=== PATIENT | female | born 1980 | race Caucasian/White ===

== ENCOUNTER → 2023-11-15 06:16 | Day surgery (SDC) | payer BC, SELFPAY | LOC: GI 06:16 | PROVIDERS: ATTENDING PHYSICIAN Internal Medicine Gastroenterology | DX: R10.32 Left lower quadrant pain (principal); K64.8 Other hemorrhoids | CPT/HCPCS: 45378 ==

== ENCOUNTER 2024-01-08 18:52 | Inpatient (IN) | payer BC, SELFPAY ==
[2024-01-08] VITALS (8 sets, daily range): BP systolic 97–129; BP diastolic 53–82; BMI 23.3
--- NOTE | 2024-01-08 11:59 | ED.GENMED ---
History of Present Illness
<Salina Bliss PA-C - Last Filed: 01/08/24 19:33>
General
Chief Complaint: Abdominal Symptoms
Source: patient
Exam Limitations: none
Time Seen by Provider: 01/08/24 11:48
Nursing documentation reviewed up to this point in time: agreed with
History of Present Illness
History of Present Illness:
43-year-old female with past medical history of prior appendectomy, , asthma, migraine disorder presenting emergency department today with concerns of nausea, abdominal pain. Patient states that for the past few weeks or so, she has felt
nauseous persistently and states that this is impacted her oral intake. Patient reports a 14 pound weight loss within the past month. Patient states that she then developed sudden onset severe diffuse abdominal pain that started last night and
progressed throughout the night. Patient subsequently had to large-volume bloody stools which were very painful for her. Patient also had multiple episodes of vomiting this past week and states that she is not able to keep anything down orally
without subsequently vomiting. Patient denies any dysuria, hematuria, urinary frequency. Patient denies any fevers or chills, recent sick contacts, recent travel. Patient states that she was having left lower quadrant pain flank pain persistently
a few months ago but states it is much different than this. Because of that pain, she had a colonoscopy around 2 months ago which demonstrated internal hemorrhoids but was otherwise unremarkable.
Past History
<Salina Bliss PA-C - Last Filed: 01/08/24 19:33>
Past History
ED Past Medical History: Asthma (Bronchitis), Hypercholesterolemia, Psychiatric (Anxiety), Other (Migraines) and Other (. 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
ED Past Surgical History: Appendectomy
Social History
Tobacco: Vaping
Alcohol: Occasional
Personal:
Living: with family
Family History
Family History: Negative Diabetes, Hypertension or CAD
Review of Systems
<Salina Bliss PA-C - Last Filed: 01/08/24 19:33>
Review of Systems
All Other Systems: ROS reviewed and negative except as documented in HPI and ROS
Phy Exam
<Salina Bliss PA-C - Last Filed: 01/08/24 19:33>
Physical Exam
Physical Exam:
General: Patient is well appearing and in no acute distress; non-toxic
Skin: Warm and dry, no rashes or lesions
Head: Normocephalic, atraumatic
Eyes: Sclera non-icteric. EOMs intact. PERRLA.
Cardiac: Regular rate and rhythm, no murmurs
Pulm: Normal respiratory effort
Abdomen: Diffuse abdominal tenderness to palpation with guarding, no palpable masses
Neuro: CN II-XII intact, no focal neurologic deficits.
Psychiatric: Appropriate mood and affect.
Course
<Salina Bliss PA-C - Last Filed: 01/08/24 19:33>
Orders/Labs/Results
Orders:
Orders
01/08/24 12:08
0.9% Sodium Chloride 1000 ml [Nss] 1,000 ml IV BOLUS
Ketorolac [Toradol] 15 mg IV NOW STA
Ondansetron Injectable [Zofran] 4 mg IV NOW STA
01/08/24 12:17
Complete Blood Count/With Diff Urgent
Comprehensive Metabolic Panel Urgent
HCG, Serum Qualitative Screen Urgent
Comment: ADD ON
Lipase Urgent
Comment: ADD ON
01/08/24 12:28
Iohexol [Omnipaque] See Protocol PO NOW STA
01/08/24 12:29
CT Abd/pel W Iv And Oral Contr Urgent
Comment:
Reason For Exam: diffuse abdominal pain
01/08/24 14:25
0.9% Sodium Chloride 1000 ml [Nss] 1,000 ml IV BOLUS
01/08/24 14:30
Add On- LAB Urgent
Tests Added?: serum hcg
01/08/24 14:41
Ondansetron Injectable [Zofran] 4 mg IV NOW STA
01/08/24 14:50
HYDROmorphone [Dilaudid] 0.5 mg IV NOW STA
01/08/24 15:00
HYDROmorphone [Dilaudid] 0.5 mg .ROUTE .STK-MED ONE
01/08/24 15:42
Test Result ONCE
01/08/24 15:49
Urine Drug Abuse Screen Urgent
Date Specimen was Collected: 01/08/24
Time Specimen was Collected: 15:49
01/08/24 17:50
Piperacillin/Tazo 3.375 Gram [Zosyn] 3.375 gram in 50 ml IV NOW
01/08/24 17:57
C DIFF [C difficile Antigen & Toxins] Routine
KATHY Source: Feces/Stool
Specimen Description:
Norovirus by PCR Routine
KATHY Source: Feces/Stool
Specimen Description:
Stool Culture Routine
KATHY Source: Feces/Stool
Specimen Description:
01/08/24 18:12
Admit/Transfer Patient As Directed
Co-Sign Provider:
Level of Care: Inpatient admission
Assign to:: Telemetry
Physician / Group: Ronal/hospitalist
Diagnosis: colitis
Reason for Telemetry: Arrhythmia
Date to Stop Telemetry: 01/11/24
Time to Stop Telemetry: 11:00
Reason for Hospitalization: colitis
Expected length of stay greater than two midnights?: Yes
ELOS- Estimated Length of Stay in days: 3
I certify the patient meets the requirements for IP care: Yes
GASTROINTESTINAL CONSULT Routine
Consulting Provider: Jossie Johnson
Was physician already notified: Yes
PRN Pain Medication Management As Directed
May give lesser potent ordered pain med per pt: Yes
preference::
Protocol:: Medication orders for pain may be administered in a
manner that supports deferring to patient preference
when the pt is:
- Requesting an ordered lesser potent pain medication.
Least to most potent pain medications are defined
as: acetaminophen < NSAID < tramadol < opioids
(morphine, oxycodone, hydromorphone).
- Requesting a lesser dose of the same medication IF
ORDERED.
- Requesting a less intrusive route of administration
if both routes are prescribed by the provider (PO <
IV).
01/08/24 18:13
Code Status As Directed
Resuscitation Status: Full Code
01/08/24 18:15
Add On- LAB Routine
Tests Added?: lipase
01/08/24 18:19
Add On - Microbiology Urgent
Tests Added?: Urine drug abuse screen
01/11/24 11:00
DC Protocol for Telemetry ONCE
Abnormal Lab Results
01/08/24
12:17
WBC 11.1 H 10^3/uL
(4.8-10.8)
MCH 31.2 H pg
(27.0-31.0)
Absolute Neuts (auto) 10.0 H 10^3/uL
(1.4-6.5)
Absolute Lymphs (auto) 0.7 L 10^3/uL
(1.2-3.4)
Neutrophils % 89.8 H %
(42.2-75.2)
Lymphocytes % 5.9 L %
(20.5-51.1)
Glucose 145 H mg/dl
(70-99)
01/08/24 12:17
01/08/24 12:17
Vital Signs
Initial and Last Documented VS:
Initial Vital Signs
Temp Pulse Resp BP Pulse Ox
97.9 F 83 16 129/82 100
01/08/24 11:32 01/08/24 11:32 01/08/24 11:32 01/08/24 11:32 01/08/24 11:32
Last Documented Vital Signs
Temp Pulse Resp BP Pulse Ox
97.9 F 78 14 111/68 99
01/08/24 11:32 01/08/24 18:45 01/08/24 18:45 01/08/24 18:15 01/08/24 15:59
<Ace Carbajal, DO - Last Filed: 01/08/24 12:29>
Orders/Labs/Results
Orders:
Orders
01/08/24 12:08
0.9% Sodium Chloride 1000 ml [Nss] 1,000 ml IV BOLUS
Ketorolac [Toradol] 15 mg IV NOW STA
Ondansetron Injectable [Zofran] 4 mg IV NOW STA
01/08/24 12:17
Complete Blood Count/With Diff Urgent
Comprehensive Metabolic Panel Urgent
HCG, Serum Qualitative Screen Urgent
Comment: ADD ON
Lipase Urgent
Comment: ADD ON
01/08/24 12:28
Iohexol [Omnipaque] See Protocol PO NOW STA
01/08/24 12:29
CT Abd/pel W Iv And Oral Contr Urgent
Comment:
Reason For Exam: diffuse abdominal pain
01/08/24 14:25
0.9% Sodium Chloride 1000 ml [Nss] 1,000 ml IV BOLUS
01/08/24 14:30
Add On- LAB Urgent
Tests Added?: serum hcg
01/08/24 14:41
Ondansetron Injectable [Zofran] 4 mg IV NOW STA
01/08/24 14:50
HYDROmorphone [Dilaudid] 0.5 mg IV NOW STA
01/08/24 15:00
HYDROmorphone [Dilaudid] 0.5 mg .ROUTE .STK-MED ONE
01/08/24 15:42
Test Result ONCE
01/08/24 15:49
Urine Drug Abuse Screen Urgent
Date Specimen was Collected: 01/08/24
Time Specimen was Collected: 15:49
01/08/24 17:50
Piperacillin/Tazo 3.375 Gram [Zosyn] 3.375 gram in 50 ml IV NOW
01/08/24 17:57
C DIFF [C difficile Antigen & Toxins] Routine
KATHY Source: Feces/Stool
Specimen Description:
Norovirus by PCR Routine
KTAHY Source: Feces/Stool
Specimen Description:
Stool Culture Routine
KATHY Source: Feces/Stool
Specimen Description:
01/08/24 18:12
Admit/Transfer Patient As Directed
Co-Sign Provider:
Level of Care: Inpatient admission
Assign to:: Telemetry
Physician / Group: Ronal/hospitalist
Diagnosis: colitis
Reason for Telemetry: Arrhythmia
Date to Stop Telemetry: 01/11/24
Time to Stop Telemetry: 11:00
Reason for Hospitalization: colitis
Expected length of stay greater than two midnights?: Yes
ELOS- Estimated Length of Stay in days: 3
I certify the patient meets the requirements for IP care: Yes
GASTROINTESTINAL CONSULT Routine
Consulting Provider: Jossie Johnson
Was physician already notified: Yes
PRN Pain Medication Management As Directed
May give lesser potent ordered pain med per pt: Yes
preference::
Protocol:: Medication orders for pain may be administered in a
manner that supports deferring to patient preference
when the pt is:
- Requesting an ordered lesser potent pain medication.
Least to most potent pain medications are defined
as: acetaminophen < NSAID < tramadol < opioids
(morphine, oxycodone, hydromorphone).
- Requesting a lesser dose of the same medication IF
ORDERED.
- Requesting a less intrusive route of administration
if both routes are prescribed by the provider (PO <
IV).
01/08/24 18:13
Code Status As Directed
Resuscitation Status: Full Code
01/08/24 18:15
Add On- LAB Routine
Tests Added?: lipase
01/08/24 18:19
Add On - Microbiology Urgent
Tests Added?: Urine drug abuse screen
01/11/24 11:00
DC Protocol for Telemetry ONCE
Abnormal Lab Results
01/08/24
12:17
WBC 11.1 H 10^3/uL
(4.8-10.8)
MCH 31.2 H pg
(27.0-31.0)
Absolute Neuts (auto) 10.0 H 10^3/uL
(1.4-6.5)
Absolute Lymphs (auto) 0.7 L 10^3/uL
(1.2-3.4)
Neutrophils % 89.8 H %
(42.2-75.2)
Lymphocytes % 5.9 L %
(20.5-51.1)
Glucose 145 H mg/dl
(70-99)
01/08/24 12:17
01/08/24 12:17
Vital Signs
Initial and Last Documented VS:
Initial Vital Signs
Temp Pulse Resp BP Pulse Ox
97.9 F 83 16 129/82 100
01/08/24 11:32 01/08/24 11:32 01/08/24 11:32 01/08/24 11:32 01/08/24 11:32
Last Documented Vital Signs
Temp Pulse Resp BP Pulse Ox
97.9 F 78 14 111/68 99
01/08/24 11:32 01/08/24 18:45 01/08/24 18:45 01/08/24 18:15 01/08/24 15:59
<Salina Bliss PA-C - Last Filed: 01/08/24 19:33>
MDM/Problems Addressed
Differential Diagnosis Includes:
Differentials include colitis, bleeding hemorrhoids, diverticulitis, bowel obstruction,
MDM/Problems Addressed:
43-year-old female with past medical history of prior appendectomy, , asthma, migraine disorder presenting emergency department today with concerns of nausea, abdominal pain. Patient states that for the past few weeks or so, she has felt
nauseous persistently and states that this is impacted her oral intake. Patient reports a 14 pound weight loss within the past month. Patient states that she then developed sudden onset severe diffuse abdominal pain that started last night and
progressed throughout the night. Patient subsequently had to large-volume bloody stools which were very painful for her. Will obtain blood work and CAT scan
On exam, she appears in comfortable, she cannot find a position comfortable where she is not experience pain. She has no guarding on exam is diffusely tender, no palpable masses. CT scan revealed colitis. She has no risk factors for c diff--no
recent hospitalizations, no recent abx, not immunocompromised. She has never had bloody stools before, no hx of GI bleeds other than bleeding hemorrhoid. Considering patient required multiple doses of pain medication and antiemetics, as well as a
leukocytosis and recent weight loss, patient will require admission.
Chronic conditions affecting care:
Migraines, asthma, bleeding hemorrhoid
<Salina Bliss PA-C - Last Filed: 01/08/24 19:33>
*Pulse Oximetry
Patient hypoxic: no
*Critical Care Note
Total Time (30-74mins, 75-104mins- exclusive of procedures): Not Applicable
Data Reviewed
Review of Other/Old Records Reveals: Records (Reviewed colonoscopy report which demonstrated internal hemorrhoids but was otherwise unremarkable) and Operative Reports (Patient had prior appendectomy)
Source: patient and records
Prescriptions/Medications Considered But Not Given:
n/a
<Salina Bliss PA-C - Last Filed: 01/08/24 19:33>
Patient Management
Escalation/DeEscalation of care consider admission/obs:
Admit indicated
ED Attending Note
<Salina Bliss PA-C - Last Filed: 01/08/24 19:33>
-
Portions of this chart may have been created with voice recognition software.� Occasional wrong word or��sound alike� substitutions may have occurred due to the inherent limitations of voice recognition software.
<Ace Carbajal DO - Last Filed: 01/08/24 12:29>
ED Attending Note
Patient seen and examined by attending physician: Yes
I performed the substantive portion of visit, reviewed & personally made and approve the management plan that is documented in note by myself or CLEMENTINE.: Yes
I performed a history and physical exam of patient and discussed management with resident, I reviewed resident's note and agree with documented findings and plan of care.: Yes
ED Attending Note:
I evaluated the patient bedside. The patient appears somewhat uncomfortable and she does have mild diffuse abdominal tenderness on exam. Will attempt to obtain CT imaging with oral contrast. The patient states she had a relatively unremarkable
colonoscopy that did not show any signs of diverticulosis.
Discharge Plan
Departure
Patient Disposition: Admit
Date of Disposition: 01/08/24
Time of Disposition: 17:49
Admit to: Med/Surg
Presentation/result/management discussed w/ accepting MD/DO: Hospitalist
Patient with high blood pressure during this ER visit?: No
Condition: Fair
Discharge Problem:
Colitis
Interventions
Interventions:
*Risk Screen - Suicide Last Done: 01/08/24 11:32
*General Assessment Last Done: 01/08/24 12:11
*Neglect/Abuse Screening Last Done: 01/08/24 11:32
ED- Fall Risk Assessment Last Done: 01/08/24 12:11
*ED COVID-19 Vaccine History Last Done: 01/08/24 12:11
*Nursing Disposition Last Done: 01/08/24 19:25
DI-Qdxhnw-Pwpwosaxdn Assessment Last Done: 01/08/24 12:11
[2024-01-08] MEDS: TORADOL 15 MG IV (12:23)
[2024-01-08] MEDS: ZOFRAN 4 MG IV ×3 (12:24→19:53)
[2024-01-08] MEDS: NSS 1000 IV ×3 (12:24→19:54)
[2024-01-08] MEDS: OMNIPAQUE 50 ML PO (12:39)
[2024-01-08 12:47] LABS: % Basophils 0.3 % (0-2); % Immature Granulocytes 0.2 % (0-0.5); % Lymphocytes 5.9 % (20.5-51.1); % Monocytes 3.8 % (1.7-9.3); % Neutrophils 89.8 % (42.2-75.2); Absolute Lymphocytes 0.7 10^3/uL (1.2-3.4); Absolute Monocytes 0.4 10^3/uL (0.1-0.6); Hematocrit 40.3 % (37.0-47.0); Hemoglobin 14.8 g/dL (12.0-16.0); Mean Corp Hgb Conc. 36.7 g/dL (33.0-37.0); Mean Corpuscular Hgb 31.2 pg (27.0-31.0); Mean Corpuscular Volume 84.8 fL (81.0-99.0); Mean Platelet Volume 10.1 fL (7.4-10.4); Nucleated Red Blood Cells % 0 %; Platelet Count 325 10^3/uL (130-400); Red Blood Cell Count 4.75 10^6/uL (4.20-5.40); Red Cell Dist. Width 11.6 % (11.5-14.5); White Blood Cell Count 11.1 10^3/uL (4.8-10.8)
[2024-01-08 13:10] LABS: ALT (SGPT) 20 U/L (0-35); AST (SGOT) 29 U/L (14-36); Albumin 4.6 g/dl (3.5-5.0); Alkaline Phosphatase 51 U/L (38-126); Blood Urea Nitrogen 17 mg/dl (7-17); Calcium 9.5 mg/dl (8.4-10.2); Carbon Dioxide 25 mmol/L (22-30); Chloride 100 mmol/L (98-107); Estimated Creatinine Clearance 99 ml/min; Glucose 145 mg/dl (70-99); Sodium 138 mmol/L (135-145); Total Protein 6.8 g/dl (6.3-8.2); eGFR > 60.00
[2024-01-08] MEDS: DILAUDID 0.5 MG IV (14:52)
[2024-01-08 15:49] LABS: HCG, Serum Qualitative Screen Negative
--- NOTE | 2024-01-08 17:52 | HPS.HSE ---
Family Physician
-
Family Physician: Dionisio Torrez
Chief Complaint
-
Abdominal pain, bloody bowel movement
History of Present Illness
HPI: 43-year-old female with past medical history of anxiety, hemorrhoid, migraine, who presented with bilateral lower quadrant severe abdominal pain/cramp with bloody bowel movement that started the day prior to admission.
Patient also complained of nausea ongoing for the past few weeks with decreased oral intake. She apparently had lost 14 pound due to her poor appetite.
She has had C-scope 2 months prior to admission, which was unrevealing, noted internal hemorrhoid.
She denies to other symptoms, no fever, chest pain/shortness of breath, change in urination etc.
Medical History
Past Medical History
Past Medical History: Reports Other
Additional Past Medical History:
anxiety
hemorrhoid
migraine
Past Surgical History: Reports Appendectomy, and Other (Tummy tuck)
Social History
Tobacco: Vaping
Alcohol: Occasional
Living: With Family
Family History
Family History: Not pertinent
Allergies / Home Medications
Allergies reflects when Allergies were last updated in Seen.
Home Medications with original date entered in Seen
Allergy/Medication List:
Allergies
Allergy/AdvReac Type Severity Reaction Status Date / Time
sulfamethoxazole Allergy Hives Verified 01/08/24 11:31
[From Bactrim]
trimethoprim [From Bactrim] Allergy Hives Verified 01/08/24 11:31
Home Medications
buspirone 30 mg tablet 30 mg PO BID@0800,1600 01/08/24
lorazepam 0.5 mg tablet 0.5 mg PO BID@0800,1600 01/08/24
therapeutic multivitamin 1 tab PO DAILY 01/08/24
trazodone 50 mg tablet 100 mg PO HS 01/08/24
Review of Systems
-
Abdomen/GI: Reports See HPI, Abdominal Pain, Nausea and Bloody Stools
Physical Exam
Vital Signs
Vital Signs
Temp Pulse Resp BP Pulse Ox
36.6 C 83 16 97/56 100
01/08/24 11:32 01/08/24 11:32 01/08/24 11:32 01/08/24 14:00 01/08/24 14:15
Physical Exam
General: Well Developed, Well Nourished, No Apparent Distress, Conversant and Pain
HEENT: NormoCephalic, Moist mucous membranes and Atraumatic
Respiratory: Clear and Non Labored Respirations; No Accessory Resp Muscle Use
Cardiac: S1/S2 and Regular Rhythm; No Murmur or Rub
GI: Soft, Non Distended, Normal Bowel Sounds and Tender (BL lower quadrants); No Organomegaly
Rectal: Deferred by Provider
Musculoskeletal: No Clubbing, No Cyanosis and No Edema
Skin: No Rash
Neuro: Awake and Alert
Psych: Calm and Intact Judgment/Insight
Laboratory Results
-
01/08/24 12:17
01/08/24 12:17
Laboratory Results
Total Bilirubin 1.0 mg/dl (0.2-1.3) 01/08/24 12:17
AST 29 U/L (14-36) 01/08/24 12:17
ALT 20 U/L (0-35) 01/08/24 12:17
Alkaline Phosphatase 51 U/L (38-126) 01/08/24 12:17
Data Reviewed
-
CT Scan: Report Reviewed by me
Lab Data: Labs Reviewed by me
Impression/Plan
-
HPI: 43-year-old female with past medical history of anxiety, hemorrhoid, migraine, who presented with bilateral lower quadrant severe abdominal pain/cramp with bloody bowel movement that started the day prior to admission.
Patient also complained of nausea ongoing for the past few weeks with decreased oral intake. She apparently had lost 14 pound due to her poor appetite.
She has had C-scope 2 months prior to admission, which was unrevealing, noted internal hemorrhoid.
She denies to other symptoms, no fever, chest pain/shortness of breath, change in urination etc.
A/P:
# Nausea, abdominal pain/cramp with bloody bowel movement
CT AP noted colitis with low-density bowel wall thickening from the splenic flexure to the sigmoid colon
Check stool studies including stool cultures, C. difficile, norovirus
Check UDS
Monitor with telemetry to detect arrhythmia, for possible ischemic colitis as differential
Continue Zosyn
GI consult
Pain control with IV Dilaudid as needed
Clears for now with IV fluid support
Of note, recent C scope unrevealing, noted hemorrhoid
# Asthma
Stable
# migraine
Stable
DVT ppx: SCD
FC
[2024-01-08] MEDS: ZOSYN 50 IV ×2 (18:09→23:14)
[2024-01-08 19:02] LABS: Lipase 97 U/L (23-300)
[2024-01-08 19:19] LABS: Amphetamines Positive (Negative); Barbiturates Negative (Negative); Benzodiazepines Positive (Negative); Buprenorphine Negative (Negative); Cocaine Negative (Negative); Marijuana Positive (Negative); Methadone Negative (Negative); Methamphetamines Negative (Negative); Opiates Negative (Negative); Phencyclidine Negative (Negative); Tricyclic Antidepressants Negative (Negative)
[2024-01-08 19:38] LABS: Fentanyl, Urine Negative (Negative)
[2024-01-08] MEDS: DILAUDID 0.25 MG IV ×2 (19:53→23:12)
[2024-01-08] MEDS: DESYREL PO (23:27)
[2024-01-09] MEDS: DESYREL 100 MG PO ×2 (01:47→22:35)
--- NOTE | 2024-01-09 02:37 | PTCARENOTE ---
ax3 ambulates- abd pain/n/v- relieved with Zofran Dilaudid- iv fluids abx hanging per orders- sinus- bp wnl
[2024-01-09 03:38] VITALS: BP 105/68
[2024-01-09] MEDS: ZOFRAN 4 MG IV ×3 (03:46→19:37)
[2024-01-09] MEDS: DILAUDID 0.25 MG IV ×4 (03:47→19:38)
[2024-01-09] MEDS: ZOSYN 50 IV ×4 (05:23→23:12)
[2024-01-09] MEDS: NSS 1000 IV ×2 (05:23→15:56)
[2024-01-09 05:41] VITALS: BMI 22.6
--- NOTE | 2024-01-09 06:51 | CON.GI ---
Addendum entered and electronically signed by Jossie Johnson DO 01/09/24 11:42:
Patient seen and examined independently of DORITA. I agree with her note with my additions below
Patient is a 43-year-old female with history of seizure disorder, GERD, anxiety depression who had a recent normal colonoscopy in October [address] Tao who comes in with nausea vomiting abdominal pain and left-sided colitis on imaging with
blood and mucus in stools. The colonoscopy over the summer was done for intermittent left lower quadrant discomfort but no chronic diarrhea. The scope was normal with no pathology just internal hemorrhoids and repeat was suggested in 10 years.
She comes in now with acute onset nausea vomiting and multiple episodes of diarrhea. I did review pictures which had some blood in the stools. Stools have been collected and studies are pending. No one ill around her. No unusual foods or travel.
Since admission she did try clear liquids which immediately caused nausea vomiting and significant pain cramping followed by a bowel movement. She has been unable to tolerate any p.o. intake. No fever. She did have chills at home. Mild
leukocytosis on admission of 11.1 down to 8.1 today. Normal hemoglobin, normal CMP, normal lipase. Vital signs are stable.
--Currently in the position due to the discomfort
--She is tender on exam but soft
# Acute onset nausea vomiting diarrhea mixed with blood and left-sided colitis on imaging
-The acute onset of her symptoms makes this highly likely infectious
Because of the blood, agree with the antibiotics-
-stool studies are pending including C. difficile, norovirus, culture
-Antinausea medications, pain control, IV fluids
Original Note:
Consultation
-
Date/Time Consultation Requested: 01/08/24 1815
Date/Time Consultation Performed: 01/09/24 0800
Requesting Provider: Tabatha Villeda MD
Performing Provider: DORITA Gomez, Jossie Johnson DO
Reason for Consultation: colitis
Medical History
Chief Complaint / HPI
Chief Complaint: abdominal pain
History of Present Illness:
Pt is a 43yo with hx GERD, asthma, prior seizure, pituitary tumor, anxiety/depression, hemorrhoids, migraines, prior with onset of nausea and abdominal pain. She has noted recent nausea with 14 lbs wt loss in last month. Now noted with
lower abdominal pain with bloody stools. On admission she was noted with leukocytosis with WBC 11,100 and 01/07 CT A/p on admission with colitis with low-density bowel wall thickening from the splenic flexure to the sigmoid colon. She recently
completed colonoscopy 10/2023 with noted internal hemorrhoids.
In reviewing with patient she admits to increased stress with multiple family issues with some eating less, wt loss, nausea and constipation. She began 2 days prior to admission with lower abdominal pain, with loose and blood stools. She admits
to eating protein bar and trail mix prior to onset with some vomiting after onset. She denies hx odynophagia, dysphagia, GERD, hematemesis, chronic diarrhea or black stools. She does see occasional red blood with hx hemorrhoids. Denies NSAID use.
Past Medical History
Past Medical History: Asthma, Cancer (pituitary adenoma), GERD, Seizures (grand mal seizures in teens ), Psychiatric (anxiety/depression) and Other (migraines, hemorrhoids, prior fertility treatment prior concussion)
Past Surgical History: Appendectomy, and Other (abdominoplasty )
Social History
Tobacco: Vaping (tobacco)
Alcohol: None
Drug: None
Living: With Family
Employment: Not Employed
Family History
Family History: Other (no family hx colon CA or polyps )
Allergies / Home Medications
Allergy/AdvReac Type Severity Reaction Status Date / Time
sulfamethoxazole Allergy Hives Verified 01/08/24 11:31
[From Bactrim]
trimethoprim [From Bactrim] Allergy Hives Verified 01/08/24 11:31
�Medication �Instructions �Recorded
buspirone 30 mg tablet 30 mg PO BID@0800,1600 01/08/24
lorazepam 0.5 mg tablet 0.5 mg PO BID@0800,1600 01/08/24
therapeutic multivitamin 1 tab PO DAILY 01/08/24
trazodone 50 mg tablet 100 mg PO HS 01/08/24
Review of Systems
-
History Source: Patient
Constitutional: Reports Weight Loss
EENT: Reports No Symptoms
Respiratory: Reports No Symptoms
Cardiac: Reports No Symptoms
Abdomen/GI: Reports Abdominal Pain, Nausea, Vomiting, Diarrhea, Constipated and Bloody Stools
: Reports No Symptoms
Musculoskeletal: Reports No Symptoms
Skin: Reports No Symptoms
Neurological: Reports Other (some increased stress )
Hematologic/Lymphatic: Reports Bleeding
Vital Signs
Temp Pulse Resp BP Pulse Ox
98.1 F 72 21 105/68 97
01/09/24 03:38 01/09/24 03:38 01/09/24 03:38 01/09/24 03:38 01/09/24 03:38
Physical Exam
Exam
General: Well Developed, Well Nourished and No Apparent Distress
HEENT: Normocephalic and Anicteric
Respiratory: Clear
Cardiac: Regular Rhythm
GI: Soft
Musculoskeletal: No Clubbing and No Cyanosis
Skin: Warm and Dry
Neuro: Awake, Alert and AO x 3
Psych: Calm
Results
WBC 11.1 10^3/uL (4.8-10.8) H 01/08/24 12:17
Hgb 14.8 g/dL (12.0-16.0) 01/08/24 12:17
Hct 40.3 % (37.0-47.0) 01/08/24 12:17
MCV 84.8 fL (81.0-99.0) 01/08/24 12:17
Plt Count 325 10^3/uL (130-400) 01/08/24 12:17
Absolute Neuts (auto) 10.0 10^3/uL (1.4-6.5) H 01/08/24 12:17
Sodium 138 mmol/L (135-145) 01/08/24 12:17
Potassium 4.0 mmol/L (3.5-5.1) 01/08/24 12:17
Chloride 100 mmol/L (98-107) 01/08/24 12:17
Carbon Dioxide 25 mmol/L (22-30) 01/08/24 12:17
BUN 17 mg/dl (7-17) 01/08/24 12:17
Creatinine 0.7 mg/dL (0.6-1.0) 01/08/24 12:17
Calcium 9.5 mg/dl (8.4-10.2) 01/08/24 12:17
Total Bilirubin 1.0 mg/dl (0.2-1.3) 01/08/24 12:17
AST 29 U/L (14-36) 01/08/24 12:17
ALT 20 U/L (0-35) 01/08/24 12:17
Alkaline Phosphatase 51 U/L (38-126) 01/08/24 12:17
Lipase 97 U/L (23-300) 01/08/24 12:17
Diagnostic Image Results:
01/07 CT A/p There is colitis with low-density bowel wall thickening from the splenic flexure to the sigmoid colon
Prior GI Procedures:
10/2014 EGD: Smith Z-line regular, 39 cm from the incisors.
- Normal esophagus. Biopsied.
- Acute gastritis. Biopsied.
- Normal 3rd part of the duodenum. Biopsied.
- GERD, diagnosis based on history.
bx neg
10/2023 colonoscopy - kevin -internal hemorrhoids repeat 10 years
06/1018 colonoscopy Smtih hemorrhoids
Assessment / Plan
-
Pt is a 43yo with hx GERD, asthma, prior seizure, pituitary tumor, anxiety/depression, hemorrhoids, migraines, prior with onset of nausea and abdominal pain. She has noted recent nausea with 14 lbs wt loss in last month. Now noted with
lower abdominal pain with bloody stools. On admission she was noted with leukocytosis with WBC 11,100 and 01/07 CT A/p on admission with colitis with low-density bowel wall thickening from the splenic flexure to the sigmoid colon. She recently
completed colonoscopy 10/2023 with noted internal hemorrhoids.
-colitis
-leukocytosis
-recent nausea with wt loss/constipation with eating less
-increase stress
other med problems:
-GERD
-asthma
-prior seizure
-pituitary tumor
-anxiety/depression
-hemorrhoids
-migraines
-
PLAN:
etiology of colitis relate to infectious etiology, ischemic with some sweats with onset vs other -- less likely IBD with normal colon in October
await stool studies to be sent
current IV Zosyn
pain management per hospitalist
clear diet advance as tolerated
discussed increased stress offered psych eval pt declines
pt admits wt loss may be stress related
reviewed recent colonoscopy in October noted stable
return to GI office if continued diarrhea, constipation, abdominal pain, wt loss, nausea after admission
--
-
-
Thank you for consultation and allowing me to participate in the patient's care. Please call the supervisor inspection GI physician during the after hours with any questions or concerns.
[2024-01-09 07:33] VITALS: BP 88/53
[2024-01-09 07:50] LABS: % Basophils 0.7 % (0-2); % Eosinophils 2.7 % (0-6); % Immature Granulocytes 0.2 % (0-0.5); % Lymphocytes 23.7 % (20.5-51.1); % Monocytes 8.9 % (1.7-9.3); % Neutrophils 63.8 % (42.2-75.2); Absolute Basophils 0.1 10^3/uL (0-0.2); Absolute Eosinophils 0.2 10^3/uL (0-0.7); Absolute Lymphocytes 1.9 10^3/uL (1.2-3.4); Absolute Monocytes 0.7 10^3/uL (0.1-0.6); Absolute Neutrophils 5.1 10^3/uL (1.4-6.5); Hematocrit 36.7 % (37.0-47.0); Mean Corp Hgb Conc. 35.4 g/dL (33.0-37.0); Mean Corpuscular Volume 87.6 fL (81.0-99.0); Mean Platelet Volume 10.2 fL (7.4-10.4); Nucleated Red Blood Cells % 0 %; Platelet Count 266 10^3/uL (130-400); Red Blood Cell Count 4.19 10^6/uL (4.20-5.40); Red Cell Dist. Width 11.8 % (11.5-14.5); White Blood Cell Count 8.1 10^3/uL (4.8-10.8)
[2024-01-09 08:21] LABS: ALT (SGPT) 16 U/L (0-35); AST (SGOT) 22 U/L (14-36); Albumin 3.3 g/dl (3.5-5.0); Alkaline Phosphatase 41 U/L (38-126); Blood Urea Nitrogen 8 mg/dl (7-17); Calcium 8.6 mg/dl (8.4-10.2); Carbon Dioxide 26 mmol/L (22-30); Chloride 105 mmol/L (98-107); Direct Bilirubin 0.1 mg/dl (0.0-0.4); Estimated Creatinine Clearance 77 ml/min; Glucose 97 mg/dl (70-99); Lipase 69 U/L (23-300); Potassium 4.5 mmol/L (3.5-5.1); Sodium 140 mmol/L (135-145); Total Bilirubin 1.2 mg/dl (0.2-1.3); Total Protein 5.4 g/dl (6.3-8.2); eGFR > 60.00
[2024-01-09] MEDS: ATIVAN 0.5 MG PO ×2 (08:30→15:56)
[2024-01-09] MEDS: BUSPAR 30 MG PO ×2 (08:30→15:56)
--- NOTE | 2024-01-09 09:32 | W.PN.HOSP.TC ---
Today's Communication/Plan
-
see A/P
Assessment / Plan
Assessment / Plan
HPI: 43-year-old female with past medical history of anxiety, hemorrhoid, migraine, who presented with bilateral lower quadrant severe abdominal pain/cramp with bloody bowel movement that started the day prior to admission.
Patient also complained of nausea ongoing for the past few weeks with decreased oral intake. She apparently had lost 14 pound due to her poor appetite.
She has had C-scope 2 months prior to admission, which was unrevealing, noted internal hemorrhoid.
She denies to other symptoms, no fever, chest pain/shortness of breath, change in urination etc.
A/P:
# Nausea, abdominal pain/cramp with bloody bowel movement
CT AP noted colitis with low-density bowel wall thickening from the splenic flexure to the sigmoid colon
Check stool studies including stool cultures, C. difficile, norovirus if able to collect
UDS positive for amphetamine, benzo, marijuana, benzo and marijuana
telemetry did not detect any arrhythmia, hence ischemic colitis less likely
Continue Zosyn
GI on board
Pain control with IV Dilaudid as needed
Cont clears for now with IV fluid support
Of note, recent C scope unrevealing, noted hemorrhoid
# Asthma
Stable
# migraine
Stable
DVT ppx: SCD
FC
DW RN
Anticipated Discharge: 24 - 48 hours
Subjective/Interval History
-
Date of Service: January 09, 2024
Objective Data
-
Labs:
Laboratory Results
01/09/24
07:23
WBC 8.1
Hgb 13.0
Hct 36.7 L
Plt Count 266
Sodium 140
Potassium 4.5
Chloride 105
Carbon Dioxide 26
BUN 8
Creatinine 0.9
Glucose 97
Calcium 8.6
Total Bilirubin 1.2
AST 22
ALT 16
Alkaline Phosphatase 41
Vital Signs:
Vital Signs
Temp Pulse Resp BP Pulse Ox
36.7 C 56 16 88/53 94
01/09/24 07:33 01/09/24 07:33 01/09/24 07:33 01/09/24 07:33 01/09/24 07:33
I&O
01/08/24 01/09/24 01/10/24
06:59 06:59 06:59
Intake Total 1360 / 1360
Balance 1360 / 1360
Review of Systems
-
Abdomen/GI: Reports Abdominal Pain and Nausea
Physical Exam
-
General: Well Developed, Well Nourished, No Apparent Distress, Comfortable and Conversant; Negative Respiratory Distress
HEENT: Normocephalic, Atraumatic, Nose Appears Normal and Ears Appear Normal; Negative Oxygen
Respiratory: Clear to Auscultation and Non Labored Respirations; Negative Accessory Resp Muscle Use
Cardiac: Regular Rhythm and S1/S2
GI: Soft, Nondistended, Normal Bowel Sounds and Tender (mild lower quadrants)
Skin: Warm and Dry
Neuro: Awake, Alert, Oriented and AO x 3
Psych: Calm and Intact Judgement/Insight
Data Reviewed
-
CT Scan: Report Reviewed by me
Labs: Labs Reviewed by me
[2024-01-09 11:05] VITALS: BP 141/79
--- NOTE | 2024-01-09 11:20 | CM ---
branch operation evaluation manager reviewed patient's chart and met with patient and patient is on isolation, per patient she lives with her spouse and children in a multilevel home, patient is independent with adl's and ambulation, no dme, patient drives, home when
stable no needs.
Pharmacy: [facility]
PCP: Dr. Torrez
Plan; Home when stable, no needs.
i
[2024-01-09 15:31] VITALS: BP 117/72
[2024-01-09 17:18] VITALS: BMI 22.6
[2024-01-09 19:04] VITALS: BP 103/65
[2024-01-09 23:51] VITALS: BP 137/82
[2024-01-10] MEDS: NSS 1000 IV (03:00)
[2024-01-10 03:17] VITALS: BP 130/69
[2024-01-10] MEDS: DILAUDID 0.25 MG IV ×4 (04:30→23:17)
[2024-01-10] MEDS: ZOSYN 50 IV ×4 (05:02→23:12)
[2024-01-10 07:00] VITALS: BP 97/59
--- NOTE | 2024-01-10 07:09 | W.PN.GI.CBS2 ---
Today's Communication / Plan
-
Please see assessment and plan for details.
Assessment / Plan
-
1. Vomiting/diarrhea: Acute, suggested left-sided colitis on CT scan, consistent with infectious enterocolitis, overall improving, nontoxic-appearing. Stool studies negative so far though finals are pending. At this point we will continue
supportive care, advance to full liquid diet. If continues to improve and tolerates advance to low residue diet later today. Colonoscopy over the summer otherwise was unremarkable.
Subjective
Subjective
Date of Service: January 10, 2024
Patient feeling better overall, still some cramps and loose stools, though no vomiting, tolerated liquid without difficulty, no fevers, no blood or mucus overnight.
Objective
Data Reviewed
Laboratory Data:
Laboratory Results
Magnesium 2.0 mg/dl (1.6-2.3) 01/09/24 07:23
Total Bilirubin 1.2 mg/dl (0.2-1.3) 01/09/24 07:23
AST 22 U/L (14-36) 01/09/24 07:23
ALT 16 U/L (0-35) 01/09/24 07:23
Alkaline Phosphatase 41 U/L (38-126) 01/09/24 07:23
Lipase 69 U/L (23-300) 01/09/24 07:23
Vital Signs and I&O:
Vital Signs
Temp Pulse Resp BP Pulse Ox
98.1 F 72 16 130/69 97
01/10/24 03:17 01/10/24 03:17 01/10/24 03:17 01/10/24 03:17 01/10/24 03:17
I&O
01/09/24 01/10/24 01/11/24
06:59 06:59 06:59
Intake Total 1360 / 1360 1730 / 1730
Balance 1360 / 1360 1730 / 1730
Physical Exam
Physical Exam
General: NAD
Abdomen: normal bowel sounds, soft, mild lower abdominal tenderness, no masses or bruits, no ascites
[2024-01-10 08:00] LABS: % Basophils 0.9 % (0-2); % Eosinophils 3.7 % (0-6); % Immature Granulocytes 0.3 % (0-0.5); % Lymphocytes 31.9 % (20.5-51.1); % Neutrophils 55.2 % (42.2-75.2); Absolute Basophils 0.1 10^3/uL (0-0.2); Absolute Eosinophils 0.3 10^3/uL (0-0.7); Absolute Lymphocytes 2.2 10^3/uL (1.2-3.4); Absolute Monocytes 0.6 10^3/uL (0.1-0.6); Absolute Neutrophils 3.9 10^3/uL (1.4-6.5); Hematocrit 31.6 % (37.0-47.0); Hemoglobin 11.2 g/dL (12.0-16.0); Mean Corp Hgb Conc. 35.4 g/dL (33.0-37.0); Mean Corpuscular Hgb 29.9 pg (27.0-31.0); Mean Corpuscular Volume 84.5 fL (81.0-99.0); Mean Platelet Volume 10.5 fL (7.4-10.4); Nucleated Red Blood Cells % 0 %; Platelet Count 236 10^3/uL (130-400); Red Blood Cell Count 3.74 10^6/uL (4.20-5.40); Red Cell Dist. Width 11.8 % (11.5-14.5)
[2024-01-10 08:18] LABS: Blood Urea Nitrogen 5 mg/dl (7-17); Carbon Dioxide 21 mmol/L (22-30); Chloride 108 mmol/L (98-107); Estimated Creatinine Clearance 77 ml/min; Glucose 92 mg/dl (70-99); Magnesium 1.8 mg/dl (1.6-2.3); Potassium 3.7 mmol/L (3.5-5.1); Sodium 138 mmol/L (135-145); eGFR > 60.00
--- NOTE | 2024-01-10 08:42 | W.PN.HOSP.TC ---
Today's Communication/Plan
-
see A/P
Assessment / Plan
Assessment / Plan
HPI: 43-year-old female with past medical history of anxiety, hemorrhoid, migraine, who presented with bilateral lower quadrant severe abdominal pain/cramp with bloody bowel movement that started the day prior to admission.
Patient also complained of nausea ongoing for the past few weeks with decreased oral intake. She apparently had lost 14 pound due to her poor appetite.
She has had C-scope 2 months prior to admission, which was unrevealing, noted internal hemorrhoid.
She denies to other symptoms, no fever, chest pain/shortness of breath, change in urination etc.
A/P:
# Nausea, abdominal pain/cramp with bloody bowel movement
CT AP noted colitis with low-density bowel wall thickening from the splenic flexure to the sigmoid colon
Follow stool cultures,
C. difficile/norovirus/cryptosporidium negative
UDS positive for amphetamine, benzo, marijuana, benzo and marijuana
telemetry did not detect any arrhythmia, hence ischemic colitis less likely
Continue Zosyn total 5 days
GI on board
Pain control with IV Dilaudid as needed
Advanced diet to full liquid with goal to advance further to solid
Of note, recent C scope unrevealing, noted hemorrhoid
# Asthma
Stable
# migraine
Stable
DVT ppx: SCD
FC
DW RN
Anticipated Discharge: Within 24 hours
Subjective/Interval History
-
Date of Service: January 10, 2024
Objective Data
-
Labs:
Laboratory Results
01/10/24
06:58
WBC 7.0
Hgb 11.2 L
Hct 31.6 L
Plt Count 236
Sodium 138
Potassium 3.7
Chloride 108 H
Carbon Dioxide 21 L
BUN 5 L
Creatinine 0.9
Glucose 92
Calcium 8.0 L
Vital Signs:
Vital Signs
Temp Pulse Resp BP Pulse Ox
36.7 C 72 16 130/69 97
01/10/24 03:17 01/10/24 03:17 01/10/24 03:17 01/10/24 03:17 01/10/24 03:17
I&O
01/09/24 01/10/24 01/11/24
06:59 06:59 06:59
Intake Total 1360 / 1360 1730 / 1730
Balance 1360 / 1360 1730 / 1730
Review of Systems
-
Abdomen/GI: Denies Abdominal Pain or Nausea
Physical Exam
-
General: Well Developed, Well Nourished, No Apparent Distress, Comfortable and Conversant; Negative Respiratory Distress
HEENT: Normocephalic, Atraumatic, Nose Appears Normal and Ears Appear Normal; Negative Oxygen
Respiratory: Clear to Auscultation and Non Labored Respirations; Negative Accessory Resp Muscle Use
Cardiac: Regular Rhythm and S1/S2
GI: Soft, Nontender, Nondistended and Normal Bowel Sounds
Skin: Warm and Dry
Neuro: Awake, Alert, Oriented and AO x 3
Psych: Calm and Intact Judgement/Insight
Data Reviewed
-
CT Scan: Report Reviewed by me
Labs: Labs Reviewed by me
[2024-01-10] MEDS: ATIVAN 0.5 MG PO ×2 (09:50→17:08)
[2024-01-10] MEDS: BUSPAR 30 MG PO ×2 (09:50→17:08)
[2024-01-10 11:48] VITALS: BP 94/60
[2024-01-10] MEDS: ZOFRAN 4 MG IV (13:27)
[2024-01-10] MEDS: LMX 4 1 APPLIC TOPICAL (14:31)
[2024-01-10 15:00] VITALS: BP 103/66
[2024-01-10 19:46] VITALS: BP 108/66
[2024-01-10] MEDS: DESYREL 100 MG PO (21:41)
[2024-01-10 23:25] VITALS: BP 106/69
[2024-01-11 03:45] VITALS: BP 111/69
[2024-01-11] MEDS: ZOSYN 50 IV ×2 (05:01→11:43)
[2024-01-11 06:07] LABS: % Basophils 1.5 % (0-2); % Eosinophils 8.8 % (0-6); % Immature Granulocytes 0.2 % (0-0.5); % Lymphocytes 36.8 % (20.5-51.1); % Monocytes 8.6 % (1.7-9.3); % Neutrophils 44.1 % (42.2-75.2); Absolute Basophils 0.1 10^3/uL (0-0.2); Absolute Eosinophils 0.5 10^3/uL (0-0.7); Absolute Lymphocytes 1.9 10^3/uL (1.2-3.4); Absolute Monocytes 0.5 10^3/uL (0.1-0.6); Absolute Neutrophils 2.3 10^3/uL (1.4-6.5); Hematocrit 32.8 % (37.0-47.0); Hemoglobin 11.7 g/dL (12.0-16.0); Mean Corp Hgb Conc. 35.7 g/dL (33.0-37.0); Mean Corpuscular Volume 84.1 fL (81.0-99.0); Mean Platelet Volume 10.2 fL (7.4-10.4); Nucleated Red Blood Cells % 0 %; Platelet Count 234 10^3/uL (130-400); Red Cell Dist. Width 11.8 % (11.5-14.5); White Blood Cell Count 5.3 10^3/uL (4.8-10.8)
[2024-01-11 06:28] LABS: Blood Urea Nitrogen 7 mg/dl (7-17); Calcium 8.9 mg/dl (8.4-10.2); Carbon Dioxide 26 mmol/L (22-30); Chloride 106 mmol/L (98-107); Estimated Creatinine Clearance 86 ml/min; Glucose 95 mg/dl (70-99); Magnesium 1.8 mg/dl (1.6-2.3); Potassium 3.9 mmol/L (3.5-5.1); Sodium 139 mmol/L (135-145); eGFR > 60.00
[2024-01-11 07:00] VITALS: BP 94/61
[2024-01-11] MEDS: BUSPAR 30 MG PO (09:01)
[2024-01-11] MEDS: ZOFRAN 4 MG IV (09:01)
[2024-01-11] MEDS: ATIVAN 0.5 MG PO (09:01)
--- NOTE | 2024-01-11 09:44 | W.PN.HOSP.TC ---
Addendum entered and electronically signed by Tabatha Villeda MD 01/11/24 12:40:
total DC time 36 min
Original Note:
Today's Communication/Plan
-
see A/P
Assessment / Plan
Assessment / Plan
HPI: 43-year-old female with past medical history of anxiety, hemorrhoid, migraine, who presented with bilateral lower quadrant severe abdominal pain/cramp with bloody bowel movement that started the day prior to admission.
Patient also complained of nausea ongoing for the past few weeks with decreased oral intake. She apparently had lost 14 pound due to her poor appetite.
She has had C-scope 2 months prior to admission, which was unrevealing, noted internal hemorrhoid.
She denies to other symptoms, no fever, chest pain/shortness of breath, change in urination etc.
A/P:
# Nausea, abdominal pain/cramp with bloody bowel movement
CT AP noted colitis with low-density bowel wall thickening from the splenic flexure to the sigmoid colon
Follow stool cultures,
C. difficile/norovirus/cryptosporidium negative
UDS positive for amphetamine, benzo, marijuana, benzo and marijuana
telemetry did not detect any arrhythmia, hence ischemic colitis less likely
s/p Zosyn x3 days, would DC further
GI on board
Change IV Dilaudid to PO Percocet for pain control after discharge
Advance diet to regular and if pt tolerates well, OK for discharge
Of note, recent C scope unrevealing, noted hemorrhoid
# Asthma
Stable
# migraine
Stable
DVT ppx: SCD
FC
DW GI
Anticipated Discharge: Today
Subjective/Interval History
-
Date of Service: January 11, 2024
Objective Data
-
Labs:
Laboratory Results
01/11/24
05:38
WBC 5.3
Hgb 11.7 L
Hct 32.8 L
Plt Count 234
Sodium 139
Potassium 3.9
Chloride 106
Carbon Dioxide 26
BUN 7
Creatinine 0.8
Glucose 95
Calcium 8.9
Vital Signs:
Vital Signs
Temp Pulse Resp BP Pulse Ox
36.6 C 67 16 94/61 99
01/11/24 07:00 01/11/24 07:00 01/11/24 07:00 01/11/24 07:00 01/11/24 07:00
I&O
01/10/24 01/11/24 01/12/24
06:59 06:59 06:59
Intake Total 1730 / 1730 1620 / 1620
Balance 1730 / 1730 1620 / 1620
Review of Systems
-
Abdomen/GI: Denies Abdominal Pain or Nausea
Physical Exam
-
General: Well Developed, Well Nourished, No Apparent Distress, Comfortable and Conversant; Negative Respiratory Distress
HEENT: Normocephalic, Atraumatic, Nose Appears Normal and Ears Appear Normal; Negative Oxygen
Respiratory: Clear to Auscultation and Non Labored Respirations; Negative Accessory Resp Muscle Use
Cardiac: Regular Rhythm and S1/S2
GI: Soft, Nontender, Nondistended and Normal Bowel Sounds
Skin: Warm and Dry
Neuro: Awake, Alert, Oriented and AO x 3
Psych: Calm and Intact Judgement/Insight
Data Reviewed
-
CT Scan: Report Reviewed by me
Labs: Labs Reviewed by me
--- NOTE | 2024-01-11 09:47 | W.PN.GI.CBS2 ---
Today's Communication / Plan
-
Please see assessment and plan for details.
Assessment / Plan
-
1. Vomiting/diarrhea: Acute, suggested left-sided colitis on CT scan, consistent with infectious enterocolitis, overall improving, nontoxic-appearing. Stool studies negative so far though finals are pending. Given improvement she is okay to DC
from GI standpoint. We discussed continued hydration, dietary modifications, possible Pepto-Bismol and supportive care.
Subjective
Subjective
Date of Service: January 11, 2024
Patient feeling better overall, less frequent diarrhea, no bleeding, less pain, tolerated liquids without difficulty, no vomiting.
Objective
Data Reviewed
Laboratory Data:
Laboratory Results
01/11/24 05:38
01/11/24 05:38
Laboratory Results
Magnesium 1.8 mg/dl (1.6-2.3) 01/11/24 05:38
Total Bilirubin 1.2 mg/dl (0.2-1.3) 01/09/24 07:23
AST 22 U/L (14-36) 01/09/24 07:23
ALT 16 U/L (0-35) 01/09/24 07:23
Alkaline Phosphatase 41 U/L (38-126) 01/09/24 07:23
Lipase 69 U/L (23-300) 01/09/24 07:23
Vital Signs and I&O:
Vital Signs
Temp Pulse Resp BP Pulse Ox
97.9 F 67 16 94/61 99
01/11/24 07:00 01/11/24 07:00 01/11/24 07:00 01/11/24 07:00 01/11/24 07:00
I&O
01/10/24 01/11/24 01/12/24
06:59 06:59 06:59
Intake Total 1730 / 1730 1620 / 1620
Balance 1730 / 1730 1620 / 1620
Physical Exam
Physical Exam
General: NAD
Abdomen: normal bowel sounds, soft, no tenderness, no masses or bruits, no ascites
--- NOTE | 2024-01-11 10:41 | CM ---
Patient seen bedside, discussed plan for discharge today. Patient denies any needs upon discharge, reports she will call and [employer] for transport home. CM will continue to follow for all discharge planning needs.
Plan; home no needs.
[2024-01-11 11:00] VITALS: BP 101/61
[2024-01-11] MEDS: DILAUDID 0.25 MG IV (11:43)
--- NOTE | 2024-01-11 12:22 | W.DCSUMMARY ---
Discharge Summary
Discharge Data
Date of Admission: 01/08/24
Date of Discharge: 01/11/24
-
Pending Results: No
Hospital Course
Principal Diagnosis:
Abdominal pain/cramp with bloody bowel movement due to acute infectious enteritis/colitis.
Chronic Diagnoses:�
Asthma
Migraine
Consultations:�
Gastroenterology
Procedures:�
None
Clinical course:�
This is a 43-year-old female, with past medical history as stated above, who presented with abdominal pain/cramp with bloody bowel movement.
Problem 1:
Abdominal pain/cramp with bloody bowel movement due to acute infectious enteritis/colitis.
Her CT AP noted colitis with low-density bowel wall thickening from the splenic flexure to the sigmoid colon.
Her C. difficile/norovirus/cryptosporidium were negative.
Of note, her UDS was positive for amphetamine, benzo, and marijuana.
She did receive empiric Zosyn for 3 days while in the hospital, and no further antibiotic was continued.
She received IV Dilaudid for pain control during her hospital stay, and she can continue with Percocet as needed for pain control following discharge.
She was able to tolerate solid food prior to discharge.
As for the rest of her medical problems, they were stable during her hospital stay.
Discharge Plan
-
Patient Disposition: Home (Routine Discharge)
Discharge Diagnosis/Procedures: Nausea, abdominal pain/cramp with bloody bowel movement due to colitis
Condition: Good
Diet: As tolerated
Activity: As tolerated
Driving Restrictions: As prior to admission
Referrals:
Kash Tao MD [Active] - (Follow up with Dr. Tao if any persistent GI symptoms after admission - diarrhea, bleeding, abominal pain, wt loss, nausea,etc. )
Dionisio Torrez, DO [Family Provider] - in less than 1 week
Prescriptions:
New
oxycodone-acetaminophen [Percocet] 5-325 mg tablet
1 tab PO Q8H PRN (Reason: Pain) Qty: 5 0RF
Continued
trazodone 50 mg tablet
100 mg PO HS
therapeutic multivitamin Tablet
1 tab PO DAILY
lorazepam 0.5 mg tablet
0.5 mg PO BID@0800,1600
Patient Comments:
01/08/2024: last filled 10/29/23, 180 tabs for 90 days
buspirone 30 mg tablet
30 mg PO BID@0800,1600
Discharge Orders:
Discharge Patient (As Directed); Ordered 01/11/24
Ordered By: Tabatha Villeda
Discharge Date and Time
Print Language: WALLISIAN
== END 2024-01-11 14:10 | disposition home or self-care (01) | DRG 392 ==
LOC: 4 WEST ACU 18:52
PROVIDERS: Physician Assistant; ADMITTING PHYSICIAN Internal Medicine; CONSULT PHYSICIAN Internal Medicine; EMERGENCY PHYSICIAN Emergency Medicine; FAMILY PHYSICIAN Family Medicine
DX: A09 Infectious gastroenteritis and colitis, unspecified (principal); G40.409 Other generalized epilepsy and epileptic syndromes, not intractable, without status epilepticus; F32.A Depression, unspecified; I10 Essential (primary) hypertension; J45.909 Unspecified asthma, uncomplicated; R63.4 Abnormal weight loss; E78.00 Pure hypercholesterolemia, unspecified; F41.9 Anxiety disorder, unspecified; G43.909 Migraine, unspecified, not intractable, without status migrainosus; I25.10 Atherosclerotic heart disease of native coronary artery without angina pectoris; K21.9 Gastro-esophageal reflux disease without esophagitis; K59.00 Constipation, unspecified; K64.8 Other hemorrhoids; R63.0 Anorexia; Z68.23 Body mass index [BMI] 23.0-23.9, adult; Z79.899 Other long term (current) drug therapy; Z90.49 Acquired absence of other specified parts of digestive tract; Z87.19 Personal history of other diseases of the digestive system; Z87.820 Personal history of traumatic brain injury; Z88.1 Allergy status to other antibiotic agents; Z88.2 Allergy status to sulfonamides
CPT/HCPCS: 74177; 80048; 80053; 80306; 80307; 82248; 83690; 83735; 84703; 85025; 87045; 87046; 87077; 87324; 87328; 87329; 87427; 87449; 87798; 96361; 96365; 96375; 96376; 99285; Q9967